=== PATIENT | female | born 1950 | race Caucasian/White ===

== ENCOUNTER 2017-04-15 18:15 | Emergency (ER) | payer OTHER ==
[2017-04-15 18:22] VITALS: RESP 16
[2017-04-15 18:48] LABS: COLOR PALE YELLOW; LEUKOCYTE ESTERASE,URINE TRACE (NEGATIVE); NITRITE,URINE NEGATIVE (NEGATIVE)
[2017-04-15 18:58] LABS: RBC,URINE NONE SEEN /hpf (0-3)
--- NOTE | 2017-04-15 18:58 | EDPHY ---
H & P Time Seen by Provider: 04/15/17 18:50 HPI/ROS: CHIEF COMPLAINT: Abdominal pain HISTORY OF PRESENT ILLNESS: The patient is a 67-year-old female presenting with 4 days of abdominal pain. Her pain is localized to the the right side of her abdomen (where previous ileostomy bag was). It radiates through to the right back. The pain has remained constant since onset. The patient states she feels like she needs to have a bowel movement and has had many small bowel movements today. She has associated nausea, no emesis. She reports urinary frequency, no dysuria or hematuria. No fever. The patient has a history of diverticulitis. 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 She has indwelling mesh and was told this will need to be removed at some point in time. The patient was last admitted in 2015 with UTI. Her symptoms today feel more severe than her usual abdominal pain. REVIEW OF SYSTEMS: A comprehensive 10 point review of systems is otherwise negative aside from elements mentioned in the history of present illness. Past Medical/Surgical History: Diverticulitis with abscess formation complicated by perforation. 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 PSH: 2009 perforated diverticulum and subsequent surgery by Dr. Ramakrishna Clinton requiring further surgeries for adhesions and fistula formation. Social History: Marijuana use. No alcohol use. Smoking Status: Current every day smoker Physical Exam: General Appearance: Alert, pleasant Eyes: Pupils equal and round, no conjunctival pallor or injection ENT, Mouth: Mucous membranes moist Neck: Normal inspection Respiratory: Lungs are clear to auscultation Cardiovascular: Regular rate and rhythm Gastrointestinal: Diffuse abdominal tenderness especially RUQ. Tinkling bowel sounds Neurological: A&O, nonfocal, normal gait Skin: Warm and dry, no rash Extremities: Nontender, no pedal edema Psychiatric: Mood and affect normal Constitutional: Initial Vital Signs Temperature (C) 36.6 C 04/15/17 18:19 Heart Rate 73 04/15/17 18:19 Respiratory Rate 16 04/15/17 18:19 Blood Pressure 123/82 H 04/15/17 18:19 O2 Sat (%) 95 04/15/17 18:19 O2 Delivery Mode Room Air Allergies/Adverse Reactions: tetracycline [Tetracycline] Allergy (Severe, Verified 05/01/16 09:41) Hives BEE STINGS Allergy (Severe, Uncoded 09/20/09 21:08) WELTS INSIDE THROAT AND ON SKIN OUTSIDE MOLDS Allergy (Severe, Uncoded 09/20/09 21:08) NOSE SWELLING/EYE INFECTION/VERY SICK Home Medications: Medication Instructions Recorded Sulfamethox/Tmp 800/160 mg 1 tab PO BID #14 tab 04/15/17 [Bactrim Ds] Medical Decision Making - Diagnostics Imaging Results: CT scan of the abdomen and pelvis read by the radiologist reveals cholelithiasis without evidence of cholecystitis and bladder wall thickening. Imaging: Discussed imaging studies w/ trust and estates paralegal Radiologist ED Course/Re-evaluation: Patient with significant history of abdominal surgeries, diverticulitis, and UTI , presents with right sided abdominal pain for the past 4 days. I ordered labs, urinalysis, and CT abd/pelvis. UA is positive for leukocyte esterase and WBCs. CT abd/pelvis is negative. I discussed findings with the patient. On re-evaluation, the patient is feeling better. Abdominal exam remains benign. Plan to treat UTI with antibiotics. Urine culture sent. I feel that she is safe and stable for discharge home. She will follow up with her primary care provider for further evaluation. Warning signs discussed. Differential Diagnosis: Differential diagnosis includes though it is not limited to appendicitis, cholecystitis, diverticulitis, pyelonephritis, bowel perforation, small bowel obstruction. - Data Points Laboratory Results: Laboratory Results 04/15/17 19:09 04/15/17 19:09 Microbiology Results: MICROBIOLOGY 04/15/17 18:30 Urine,Clean Catch Urine Culture - Final Gram Neg Filiberto Lact[employer] [place] Types Departure - Departure Disposition: Home, Routine, Self-Care Clinical Impression: UTI (urinary tract infection) Qualifiers: Urinary tract infection type: acute cystitis Hematuria presence: without hematuria Qualified Code(s): N30.00 - Acute cystitis without hematuria Abdominal pain Qualifiers: Abdominal location: generalized Qualified Code(s): R10.84 - Generalized abdominal pain Condition: Good Instructions: Urinary Tract Infection in Women (ED), Abdominal Pain (ED) Additional Instructions: Take the full course of antibiotics as directed. Follow up with your primary care physician next week for reevaluation as needed. In the event your pain markedly increases before that time or you develop intractable vomiting or fever return to the Emergency Department immediately. Referrals: Brittney Akhtar MD [Primary Care Provider] - As per Instructions Prescriptions: Sulfamethox/Tmp 800/160 mg [Bactrim Ds] 1 tab PO BID #14 tab Report Scribed for: Stefania Sigala Report Scribed by: Do Austin Date of Report: 04/15/17 Time of Report: 18:57 Physician Review and Approval Statement: 04/15/17 18:57 Portions of this note were transcribed by a manager medical writing. I personally performed the history, physical exam, and medical decision-making; and confirmed the accuracy of the information in the transcribed note.
[2017-04-15 19:24] LABS: % IMMATURE GRANULYOCYTES 0.4 % (0.0-1.1); ABSOLUTE IMMATURE GRANULOCYTES 0.04 10^3/uL (0.00-0.10); ADD DIFF? NO; ADD MORPH? NO; ADD SCAN? NO; ATYPICAL LYMPHOCYTE FLAG 10 (0-99); FRAGMENT RBC FLAG 0 (0-99); HEMOGLOBIN 14.3 g/dL (12.6-16.3); LEFT SHIFT FLG 0 (0-99); LIPEMIA HEMOLYSIS FLAG 90 (0-99); MEAN CELL HEMOGLOBIN 28.9 pg (27.9-34.1); MEAN PLATELET VOLUME 9.5 fL (8.7-11.7); PLATELET CLUMPS FLAG 0 (0-99); PLATELET COUNT 230 10^3/uL (150-400); RED BLOOD CELL COUNT 4.94 10^6/uL (4.18-5.33); RED CELL DISTRIBUTION WIDTH 14.1 % (11.5-15.2)
[2017-04-15 19:36] LABS: ALANINE AMINOTRANSFERASE 30 IU/L (9-52); ALBUMIN 3.9 g/dL (3.5-5.0); ALKALINE PHOSPHATASE 102 IU/L (38-126); ANION GAP 9 mEq/L (8-16); ASPARTATE AMINOTRANSFERASE 22 IU/L (14-46); BILIRUBIN,TOTAL 0.5 mg/dL (0.1-1.4); BILIRUBIN-CONJUGATED 0.2 mg/dL (0.0-0.5); BILIRUBIN-UNCONJUGATED 0.3 mg/dL (0.0-1.1); CALCIUM 9.8 mg/dL (8.5-10.4); CARBON DIOXIDE 22 mEq/l (22-31); CHLORIDE 105 mEq/L (97-110); GLOMERULAR FILTRATION RATE 55; GLUCOSE 82 mg/dL (70-100); POTASSIUM 4.6 mEq/L (3.5-5.2); SODIUM 136 mEq/L (134-144)
[2017-04-15] MEDS ORDERED: IOPAMIDOL (ISOVUE-300) 100 ML BTL ONE (19:37)
[2017-04-15 20:27] VITALS: BP 134/88; PULSE 77; TEMP 97.7; O2SAT 94
== END 2017-04-15 20:26 | disposition home or self-care (01) ==
DX: N30.00 Acute cystitis without hematuria (principal); F17.200 Nicotine dependence, unspecified, uncomplicated; B96.89 Other specified bacterial agents as the cause of diseases classified elsewhere
CPT/HCPCS: 82947-QW; Q9967

== ENCOUNTER → 2019-01-01 | Outpatient (CLI) | payer OTHER | LOC: FIMAGING 14:30 ==